=== PATIENT | female | born 1995 | race Caucasian/White ===

== ENCOUNTER 2021-06-17 16:58 | Emergency (ER) | payer MEDICAID ==
[~2021-06-17] VITALS: Ht 157.5 cm; Wt 75.8 kg
[2021-06-17 17:08] VITALS: BP 131/82
[2021-06-17] MEDS ORDERED: CEFTRIAXONE SODIUM 500 MG/VIAL IM ONE (19:45)
[2021-06-17] MEDS ORDERED: DOXY100C5 MT (21:07)
[2021-06-17] MEDS ORDERED: METR500T MT (21:07)
[2021-06-17] MEDS ORDERED: PENICILLIN G BENZATHINE 2,400,000 UNITS/4ML SYR IM ONE (21:15)
[2021-06-17 21:16] LABS: CLARITY URINE CLEAR (CLEAR); COLOR URINE YELLOW (YELLOW); KETONES URINE NEGATIVE (NEGATIVE); LEUKOCYTE ESTERASE URINE TRACE (NEGATIVE); NITRITE URINE NEGATIVE (NEGATIVE); OCCULT BLOOD URINE NEGATIVE (NEGATIVE); PH URINE 6.5 (4.5-8.0); PROTEIN URINE NEGATIVE (NEGATIVE); SPECIFIC GRAVITY URINE 1.004 (1.005-1.030); UROBILINOGEN URINE 0.2 E.U./dL (0.2-1.0)
[2021-06-17 21:39] LABS: HCG SCREEN NEGATIVE
[2021-06-20 04:07] LABS: NEISSERIA GONORRHOEAE NAA Negative (Negative)
== END 2021-06-17 22:29 | disposition home or self-care (01) ==
LOC: ER 16:58
DX: Z20.2 Contact with and (suspected) exposure to infections with a predominantly sexual mode of transmission (principal)
CPT/HCPCS: 81003; 81025; 84703; 86592; 86593; 86780; 87210; 87491; 87591; 96372; 99284; J0561; J0696